=== PATIENT | female | born 1970 | race Caucasian/White ===

== ENCOUNTER → 2016-07-16 | Outpatient (CLI) | payer OTHER ==
[~2016-07-16] MED LIST: FLUO10CA48 PO; IBUP-1050 PO
--- NOTE | 2016-07-16 13:55 | MAMMOGRAPHY REPORT ---
BILATERAL DIGITAL SCREENING MAMMOGRAM TOMOSYNTHESIS WITH CAD: 07/16/2016 CLINICAL HISTORY: Routine screening. Patient has no complaints. TECHNIQUE: Breast tomosynthesis in addition to standard 2D mammography was performed. Current study was also evaluated with a Computer Aided Detection (CAD) system. COMPARISON: Comparison is made to exams dated: 07/15/2015 mammogram, 03/02/2014 mammogram, 07/20/2015 ultrasound biopsy, 07/20/2015 stereotactic biopsy, 07/15/2015 ultrasound, and 10/08/2014 breast MRI - [facility]. BREAST COMPOSITION: The tissue of both breasts is heterogeneously dense, which may obscure small ma sses. FINDINGS: There is a stable ribbon shaped metallic biopsy marker in the upper outer posterior left b reast, and a linear metallic marker in the inferior posterior right breast, only seen on the MLO vie w, from previous benign bilateral biopsies. No new suspicious mass, architectural distortion or clu ster of microcalcifications is seen. IMPRESSION: ACR BI-RADS CATEGORY 1: NEGATIVE There is no mammographic evidence of malignancy. A 1 year screening mammogram is recommended. The p atient will receive written notification of the results. Approximately 10% of breast cancers are not detected with mammography. A negative mammographic repor t should not delay biopsy if a clinically suggestive mass is present. Yesenia Haas M.D. ay/:07/16/2016 13:44:04 [employer] Member: Yadi BECERRA)(Atif), [facility] letter sent: Normal 1/2 BI-RADS Code: ACR BI-RADS Category 1: Negative
== END | disposition home or self-care (01) ==
LOC: C.MAMM 07:40
PROVIDERS: ATTEND Obstetrics & Gynecology
DX: Z12.31 Encounter for screening mammogram for malignant neoplasm of breast (principal)

== ENCOUNTER → 2017-07-17 | Outpatient (CLI) | payer OTHER ==
--- NOTE | 2017-07-17 10:42 | Discharge Instructions ---
Discharge Instructions Procedure Procedure Date: Jul 17, 2017. Reason for visit: Asymptomatic. Discharge Discharge Date: Jul 17, 2017. Discharge Diagnosis: status post breast biopsy Instructions Activity Recommendations: Additional Limitations (see below) Return to School/Work: no limitations Recommended Home Diet: No Limitations Provider Instructions: ACTIVITY RECOMMENDATIONS: * No lifting, pushing, pulling or exercising the affected side for three days. RETURN TO SCHOOL/WORK: * You may return to work/school after the procedure, but do not perform any strenuous activities for 24 to 48 hours. MEDICATIONS: * Tylenol (two 325 mg) every four to six hours if needed for mild pain (if not allergic to Tylenol). DIET: * Resume previous diet. SPECIAL CARE INSTRUCTIONS: * Keep biopsy site dry for 24 hours. May shower after 24 hours, but do not soak (bathe) incision. * May remove Tegaderm (plastic patch) tomorrow AFTER showering. * Leave the steri-strips on for one week. Allow the steri-strips to fall off by themselves. If not off after one week, you may remove them. You may place a Bandaid crosswise over the strips, if desired. * Apply ice 10 minutes on and 10 minutes off as needed. * Wear a bra at bedtime to sleep more comfortably for 2-3 days. * Your referring physician should have the results after approximately 5 to 7 business days. * Call for unusual bleeding, fever, drainage, etc or if you have any questions call during normal business hours or after hours call Dr Pagan, [phone]. FOLLOW UP VISIT: Follow-up with Referring Physician as scheduled. Allergies Coded Allergies: Macrolides (Verified Allergy, Severe, 06/03/09) Penicillins (Verified Allergy, Intermediate, 06/03/09) HIVES Erythromycin (Verified Allergy, Unknown, chest pain, 12/22/12) Sulfa Drugs (Verified Allergy, Unknown, nausea and vomiting, 12/22/12) Cary Marie Recommendations: Call your doctor if: * Temperature above 101 degrees * Pain not relieved by pain medicine ordered * There is increased drainage or redness from any incision * You have any unanswered questions or concerns. Your Doctors Instructions noted above were prepared by provider Britni Pagan. Patient Signature Section: Patient Instructions Signature Page Ana Kessler Patient (or Guardian) Signature/Date: I have read and understand the instructions given to me by my caregivers. Caregiver/RN/Doctor Signature/Date: The above-named patient and/or guardian has received patient instructions on this date. + Original Patient Signature Page (only) stays with chart. Please make copy for patient.
--- NOTE | 2017-07-17 14:12 | MAMMOGRAPHY REPORT ---
ULTRASOUND GUIDED BIOPSY RIGHT BREAST: 07/17/2017 CLINICAL HISTORY: Right 2:00 periareolar breast mass. PATIENT CONSENT: The procedure, risks and benefits were discussed with the patient and informed writt en consent was obtained. A timeout was performed immediately prior to the procedure. PROCEDURE DESCRIPTION: With ultrasound guidance, aseptic technique, and lidocaine as the local anesth etic (1% lidocaine to anesthetize the skin and 1% lidocaine with epinephrine to anesthetize the deepe r tissues), the mass of concern in the right 2:00 periareolar breast was sampled 4 times with a 14-ga uge Achieve biopsy needle. Immediately thereafter, with ultrasound guidance, aseptic technique, and l idocaine as the local anesthetic, a metallic localizer clip was placed at the biopsy site. Direct pr essure was applied to the site immediately post procedure and hemostasis was achieved. Postprocedure unilateral mammograms were performed to confirm placement of the clip in the expected location of th e breast mass; see separate dictation for details. The patient tolerated the procedure without compl ication. She was given wound care instructions. The specimens were sent to pathology for analysis. COMPARISON: Comparison is made to exams dated: 07/17/2017 ultrasound, 07/17/2017 mammogram, 07/16/2016 mammogram, 07/20/2015 mammogram, 07/20/2015 ultrasound biopsy, and 07/20/2015 stereotactic biopsy - [facility]. IMPRESSION: ULTRASOUND GUIDED BIOPSY Ultrasound-guided core needle biopsy of the right 2:00 periareolar breast mass, with clip placement. The patient will receive pathology results from her referring provider. Britni Pagan M.D. ah/:07/17/2017 11:07:09 Conductor Orchestra: Yadi BECERRA)(M), [facility] [address]
--- NOTE | 2017-07-17 14:15 | MAMMOGRAPHY REPORT ---
BILATERAL DIGITAL DIAGNOSTIC MAMMOGRAM TOMOSYNTHESIS WITH CAD AND TARGETED RIGHT ULTRASOUND: 8 CLINICAL HISTORY: Asymptomatic. The patient has no palpable lumps or other complaints. TECHNIQUE: Breast tomosynthesis in addition to standard 2D mammography was performed. Current study was also evaluated with a Computer Aided Detection (CAD) system. Bilateral CC and MLO 2D and tomosyn thesis images were obtained. COMPARISON: Comparison is made to exams dated: 07/16/2016 mammogram, 07/20/2015 mammogram, 07/15/2015 m ammogram, 03/02/2014 mammogram, 02/26/2013 mammogram, and 02/19/2012 mammogram - [facility]. BREAST COMPOSITION: The tissue of both breasts is heterogeneously dense, which may obscure small mas ses. FINDINGS: The patient's screening mammogram shows a small 6 mm nodular asymmetry within the right med ial anterior breast at approximately 2 to 3:00, for which ultrasound is recommended for further evalu ation. Therefore, the exam was converted to a diagnostic mammogram as the diagnostic workup was perf ormed on the same day. The remainder of both breasts are stable compared to prior exams, without judah picious masses, calcifications, or areas of architectural distortion noted. Biopsy marker clips are again noted within the left upper outer quadrant and right lower inner quadrant from prior benign bio psies. Targeted ultrasound was performed of the right 2 to 3:00 periareolar breast in the region of the mamm ographic asymmetry. In the right 2:00 periareolar breast, there is an oval hypoechoic solid-appearin g 4 x 6 x 3 mm. The margins are not completely circumscribed. This corresponds with the mammographi c asymmetry and is indeterminant. Recommend ultrasound-guided core needle biopsy for further evaluat ion. Postprocedural right cc and ML 2D and tomosynthesis images were obtained after the biopsy, which show a new ribbon-shaped biopsy marker clip at the site of the biopsied mass in the right 2:00 periareola r breast. No significant postbiopsy hematoma is seen. IMPRESSION: ACR BI-RADS CATEGORY 4: SUSPICIOUS, TARGETED ULTRASOUND ACR BI-RADS CATEGORY 4: SUSPICIO US 1. Hypoechoic 6 mm mass in the right 2:00 periareolar breast on ultrasound, which corresponds with a mammographic focal asymmetry. The mass is indeterminate and ultrasound-guided core needle biopsy is recommended for further evaluation. The biopsy was performed the same day; see separate dictation fo r details. 2. Postprocedural mammograms show a new biopsy marker clip at the site of the biopsied asymmetry in the right 2:00 periareolar breast. The results were reviewed with the patient. Approximately 10% of breast cancers are not detected with mammography. A negative mammographic report should not delay biopsy if a clinically suggestive mass is present. Britni Pagan M.D. ah/:07/17/2017 11:00:26 Disability Benefits Specialist: Yadi CASTILLO(Bruno)(M), [facility] BI-RADS Code: ACR BI-RADS Category 4: Suspicious Ultrasound BI-RADS: ACR BI-RADS Category 4: Suspici ous
== END | disposition home or self-care (01) ==
LOC: C.MAMM 07:26
PROVIDERS: ATTEND Obstetrics & Gynecology
DX: D24.1 Benign neoplasm of right breast (principal)

== ENCOUNTER → 2017-11-13 | Outpatient (CLI) | payer OTHER ==
[2017-11-13 09:37] LABS: BASO % 0.6 %; BASO ABS # 0.05 K/uL (0-0.2); EOS ABS # 0.08 K/uL (0-0.5); HEMATOCRIT 43.1 % (37-47); HEMOGLOBIN 14.4 g/dL (12.0-16.0); IG# 0.02 K/uL (0.00-0.02); LYMPH % 26.6 %; LYMPH ABS # 2.06 K/uL (1.2-3.4); MEAN CELL VOLUME 95.6 fL (80-100); MEAN CORPUSCULAR HEMOGLOBIN 31.9 pg (25-34); MEAN CORPUSCULAR HGB CONC 33.4 g/dl (32-36); MEAN PLATELET VOLUME 10.7 fL (7.4-10.4); MONO % 10.3 %; NEUT % 61.2 %; NEUT ABS # 4.73 K/uL (1.4-6.5); PLATELET COUNT 319 K/uL (130-400); RED CELL DISTRIBUTION WIDTH CV 12.5 % (11.5-14.5); RED CELL DISTRIBUTION WIDTH SD 43.4 fL (36.4-46.3); WHITE BLOOD COUNT 7.74 K/uL (4.8-10.8)
[2017-11-13 10:08] LABS: ALBUMIN 3.6 gm/dl (3.4-5.0); ALKALINE PHOSPHATASE 80 U/L (45-117); ALT/SGPT 23 U/L (12-78); AST/SGOT 17 U/L (15-37); BLOOD UREA NITROGEN 17 mg/dl (7-18); CALCIUM 8.5 mg/dl (8.5-10.1); CARBON DIOXIDE 27 mmol/L (21-32); CHOLESTEROL 185 mg/dl (0-200); CREATININE 0.94 mg/dl (0.60-1.20); GLUCOSE 95 mg/dl (70-99); LDL CHOLESTEROL CALCULATED 120 mg/dl; POTASSIUM 4.7 mmol/L (3.5-5.1); SODIUM 139 mmol/L (136-145); TOTAL PROTEIN 7.3 gm/dl (6.4-8.2)
== END | disposition home or self-care (01) ==
LOC: C.LAB1850 07:08
PROVIDERS: ATTEND Family Medicine
DX: Z13.220 Encounter for screening for lipoid disorders (principal); R53.81 Other malaise; R53.83 Other fatigue

== ENCOUNTER 2024-10-17 02:44 | Inpatient (IN) ==
[2024-10-17 03:36] LABS: Basophils # (auto) 0.07 K/uL (0.00-0.20); Basophils % (auto) 0.4 %; Eosinophils # (auto) 0.02 K/uL (0.00-0.50); Eosinophils % (auto) 0.1 %; Hematocrit (blood only) 47.4 % (37.0-47.0); Hemoglobin 16.1 g/dl (12.0-16.0); Immature Granulocytes # (auto) 0.07 K/uL (0.01-0.20); Immature Granulocytes % (auto) 0.4 %; Lymphocytes # (auto) 1.57 K/uL (1.20-3.40); Lymphocytes % (auto) 9.6 %; Mean Corpuscular Hemoglobin 31.8 pg (25.0-34.0); Mean Corpuscular Volume 93.7 fL (80.0-100.0); Mean Platelet Volume 10.1 fL (9.4-12.4); Monocytes # (auto) 0.67 K/uL (0.11-0.59); Monocytes % (auto) 4.1 %; Neutrophils # (auto) 14.03 K/uL (1.40-6.50); Neutrophils % (auto) 85.4 %; Platelet Count 350 K/uL (130-400); RDW Coefficient of Variation 12.3 % (11.5-14.5); RDW Standard Deviation 42.5 fL (36.4-46.3); Red Blood Count 5.06 M/uL (4.20-5.40); White Blood Count 16.43 K/ul (4.8-10.8)
[2024-10-17] MEDS: ONDANSETRON INJ 2 MG/ML 2 ML VIAL IV STA (03:36)
[2024-10-17] MEDS: HYDROmorphone INJ 0.5 MG/0.5 ML SYR IV STA (03:36)
[2024-10-17] MEDS: PANTOprazole 40 MG/10 ML SYR IV ONE (03:36)
[2024-10-17 03:45] LABS: Albumin Level 4.2 gm/dl (3.4-5.0); Bilirubin,Total 0.7 mg/dl (0.2-1.0); Calcium 9.9 mg/dl (8.6-10.3); Potassium 3.8 mmol/L (3.5-5.1)
[2024-10-17 03:51] LABS: Albumin Globulin Ratio 1.1 (0.9-2); BUN Creatinine Ratio 15.6 (10-20); Globulin 3.7 gm/dl (2.5-4.0); Total Protein 7.9 gm/dl (6.0-8.3)
[2024-10-17 03:54] LABS: Troponin I High Sensitivity 3.4 pg/ml (0-14)
[2024-10-17] MEDS: OPTIRAY 320 100ml IV ONE (04:53)
[2024-10-17] MEDS: SODIUM CHLORIDE 0.9% 1,000 ML IV ONE (05:31)
--- NOTE | 2024-10-17 06:40 | CT Scan Report ---
EXAM: CT abd pelvis IV con only CLINICAL HISTORY: Eval epigastric pain. TECHNIQUE: CT of the abdomen and pelvis was performed with contrast 93 ml opti 320 mg/ml was administrated, with the following protocol: axial images with, and reconstructed coronal and sagittal images. One of the following dose reduction techniques was utilized for this exam: Automated exposure control, adjustment of the mA and/or kV according to patient size, and use of iterative reconstruction. COMPARISON: None. FINDINGS: Abdomen: Dilated long segment of small bowel at distal jejunum/jejunoileal junction, measuring 3.2 cm transition zone noted at proximal ileum, distal to it collapsed ileum and large bowel noted, the ileum segment just distal to transition show mildly thickened enhanced wall with engorged supplying vessels(vasa recta), suggesting possible inflammatory cause of obstruction. Mild free fluid in the pelvis. Liver: Multiple small variable liver cysts, the largest one is 1.3cm, at segment VIII. Otherwise, Normal in size, shape, and density. No masses were identified. Hepatic vasculature and biliary ducts are unremarkable. Gallbladder and Biliary System: GB is surgically absent Dilated CBD reaching 1 cm, CHD and right and left main hepatic ducts, probably due to post-cholecystectomy state, clinical correlation is advised. Pancreas: The pancreatic head, body, and tail are visualized and appear normal in size and density. No pancreatic masses or calcifications were noted. The pancreatic duct is not dilated. Spleen: Normal in size, shape, and density. No splenic lesions or masses were identified. Appendix: Not seen in isolation, but no gross pathology. Kidneys and Adrenal Glands: Both kidneys are normal in size, shape, and position. Cortical thickness is within normal limits. No renal calculi or hydronephrosis. Adrenal glands are unremarkable with no evidence of masses or hyperplasia. Pelvis: Urinary Bladder: Normal in contour and wall thickness. No intraluminal lesions identified. Uterus: Not seen, likely removed surgically. Ovaries: Not well visualized but no gross abnormalities noted. Peritoneal and Retroperitoneal Structures: No lymphadenopathy was noted. Bones and Soft Tissues: Pelvic bones and soft tissues are unremarkable. No fractures or abnormal masses were identified. Tiny fat-containing umbilical hernia. IMPRESSION: 1. Small bowel obstruction, involving the distal jejunum/jejnoileal region, transition zone noted at proximal ileum, the ileum segment just distal to transition show mildly thickened enhanced wall with engorged supplying vessels (vasa recta), suggesting a possible inflammatory cause of obstruction, advise clinical correlation. 2. Mild free fluid in the pelvis. 3. Multiple small variable-sized hepatic cysts. 4. Dilated CBD reaching 1 cm, CHD, and right and left main hepatic ducts, probably due to post-cholecystectomy state, clinical correlation is advised. Electronically signed by Ruddy Castellano 10-17-2024 06:40 AM
--- NOTE | 2024-10-17 07:12 | XRay Report ---
EXAM: XR chest 1V portable CLINICAL HISTORY: Chest pain, nonspecific TECHNIQUE: Radiograph of chest was acquired. COMPARISON: 08/27/2023 07:58:08 [employer] FINDINGS: The lungs are clear and well-expanded with no pulmonary infiltrate or pleural effusion. The cardiomediastinal silhouette is within normal limits. No acute osseous abnormality. IMPRESSION: 1. No acute cardiopulmonary disease. No new finding. Electronically signed by Alberto Acosta 10-17-2024 07:11 AM
[2024-10-17] MEDS: SODIUM CHLORIDE 0.9% 500 ML IV SCH (07:21)
--- NOTE | 2024-10-17 07:32 | Emergency Department Note ---
Impression & Plan Small bowel obstruction admit to the [facility] ED Provider Note NAME: ABNER COOK AGE: 54 SEX: Female INFORMANT: Patient ED PROVIDER(S): Janeth Mcdaniel DO CHIEF COMPLAINT: epigastric pain/chest pain PLAN: Disposition: admit to the [facility] MEDICAL DECISION MAKING: This is a 54-year-old female patient presents to the emergency department with moderate to severe epigastric pain/chest pain that started around 1:00 yesterday afternoon. The pain was associated with some nausea throughout the day. The patient tried to eat dinner ( hotdogs, cucumbers, and baked beans) but the pain drastically worsened. The patient had an endoscopy performed 3 days ago which she describes as mostly normal. This was ordered because the patient had been having intermittent episodes of epigastric abdominal pain. Patient's sister explains that the patient has been under significant increased stress over the past couple of days. She does have a history of using alcohol since her of pancreatic cancer 3 years ago. Patient did have 1 alcoholic beverage last night. Patient does have a history of multiple abdominal surgeries but no previous bowel obstructions. Laboratory studies reveal white blood cell count of 16.4. H&H were stable. Troponin was negative. EKG was normal. Glucose was 166. LFTs were negative. Lipase was normal. CT scan did show evidence of a small bowel obstruction at the ileal jejunal junction. I discussed the case with the [facility] and they will evaluate for further inpatient care. Care/management discussed with: practice manager and [facility] Triage Nursing notes: reviewed and agree with them. Vital Signs: reviewed and remarkable for no significant abnormalities Additional History obtained from: Patient's sister who is at the bedside Differential Diagnosis: Perforated viscus, pancreatitis, colitis, small bowel obstruction Diagnostics, independently interpreted by me: ECG: normal sinus rhythm at a rate of [address] segment elevation or signs of ischemia. There is no ectopy. Cardiac Monitoring: Normal sinus rhythm at 78 Imaging studies: CT scan of the abdomen/pelvis: As per [facility] Portable chest x-ray: No acute pulmonary infiltrates or consolidation as per my independent interpretation HPI: 54 year old Female arrives for evaluation of Chest pain/epigastric pain. she describes moderate to severe epigastric pain/chest pain that started Around 1:00 yesterday afternoon. The pain was associated with some nausea throughout the day. The patient tried to eat dinner ( hotdogs, cucumbers, and baked beans) but the pain drastically worsened. The patient had an endoscopy performed 3 days ago which she describes as mostly normal. This was ordered because the patient had been having intermittent episodes of epigastric abdominal pain.. PAST MEDICAL HISTORY: See Below, PAST SURGICAL HISTORY: Appendectomy, cholecystectomy, hysterectomy SOCIAL HISTORY: , moderate alcohol use, lives with her children HOME MEDICATIONS: See list ALLERGIES: See list VITALS: See Below PHYSICAL EXAMINATION: HEENT: Head - normocephalic and atraumatic. Pupils are equal, round, and reactive to light. Extraocular eye muscles are intact, and sclera are anicteric. Nose - moist nasal mucosa without discharge. Mouth - moist buccal mucosa. Oropharynx is nonerythematous and there is no tonsillar exudate or edema noted. Neck: Supple; no JVD, nuchal rigidity, cervical lymphadenopathy Heart: Regular rate and rhythm. There is a normal S1 and S2 with no murmurs, clicks, or gallops appreciated. Lungs: Clear to auscultation bilaterally with no wheezes, rales, or rhonchi. Abdomen: Soft, moderate tenderness to palpation in the epigastrium, nondistended, with good bowel sounds. There are no palpable pulsatile masses or hepatosplenomegaly. There is no guarding, rigidity, or rebound noted. Extremities: No evidence of cyanosis, clubbing, or edema. There are easily palpable peripheral pulses. Skin: warm and dry with good turgor and no rashes. Emergency Department treatment: site monitor, IV Protonix, IV Zofran, IV Dilaudid, IV normal saline Emergency Department course: The patient was evaluated in room B-9. A complete history and physical was performed. An order was placed for continuous cardiac monitoring. The patient was in a normal sinus rhythm at a rate of 78. A twelve-lead EKG was obtained as described above. IV lock was initiated and labs were drawn as above. Patient went for CT scan of the abdomen/pelvis. Upon repeat assessment after radiology, the patient was feeling much better. I reviewed the results of the labs with her. I reviewed the results of the CT scan with her. She had no further nausea/vomiting or any abdominal pain at this point. I discussed the case with the [facility] and they will evaluate for further inpatient care and consult surgery. Past Med/Surg History Problem List (Updated 10/17/24 @ 11:29 by Madeleine Panda PA-C) Anxiety Leukocytosis Small bowel obstruction (Acute) Mass of finger of left hand Heterogeneously dense tissue of both breasts on mammography Family history of malignant neoplasm of breast Colon cancer screening Encounter for assessment of STD exposure Encounter for pre-operative examination Menorrhagia Encounter for routine gynecological examination Medical History History of menorrhagia had hysterectomy--no further issues History of COVID-19 03/2021--mild symptoms, no symptoms now History of basal cell cancer on nose and back Osteoarthritis Uterine fibroid 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 TMJ locking hx TMJ click Surgical History History of colonoscopy History of basal cell carcinoma (BCC) excision on nose and back History of hysterectomy with unilateral oophorectomy 08/2022 History of surgery left index finger History of right oophorectomy History of gynecologic surgery Cervical conization loop electrode excision History of appendectomy History of oral surgery soft palate excision of malignant tumor History of laparoscopic cholecystectomy Family History Mother Breast cancer, Onset Age: 51 Sister Breast cancer, Onset Age: 40 Early 40s Family/Other Endometrial cancer, Onset Age: 40 Family/Other Ovarian cancer Other No family history of adverse response to anesthesia Denies family history of Colorectal cancer Social History Smoking Status: Former smoker Tobacco Type: Cigarettes Second Hand Exposure: No; Do You Dip or Chew Tobacco: No; Hx Alcohol Use: Yes Alcohol type: wine Hx Substance Use: No Preferred Language: [place] Communication Ability: Effective Back Digger Operator Required: Yes Beliefs That Will Affect Care: None Current Living Situation: Alone Current Living Situation Comment: Feels Safe at Home: Yes Assistive Devices: None Allergies Allergies Allergy/AdvReac Type Severity Reaction Status Date / Time citalopram Allergy Intermediate hives ? Verified 09/10/24 16:13 erythromycin base Allergy Intermediate chest pain Verified 10/17/24 09:02 Macrolide Antibiotics Allergy Intermediate Hives Verified 10/17/24 09:02 Penicillins Allergy Intermediate Hives Verified 10/17/24 09:02 walnut Allergy Intermediate Hives Verified 10/17/24 09:02 Sulfa (Sulfonamide Allergy Mild nausea and Verified 10/17/24 09:02 Antibiotics) vomiting, hives Home Meds Home Medications Medication Instructions Recorded Confirmed fluoxetine 10 mg tablet 10 mg PO QAM 08/01/22 10/17/24 ascorbate calcium (vitamin C) 1 tab PO DAILY 10/17/24 10/17/24 Results & Data (ED) Vital Signs Vital Signs - 24 hr 10/17/24 02:52 10/17/24 03:01 10/17/24 03:24 Temperature 36.6 C Temperature Source Temporal Artery Scan Pulse Rate 67 70 58 L Pulse Rate from SpO2 Sensor Respiratory Rate 16 18 Respiratory Depth Normal Blood Pressure 161/88 H 141/89 H Blood Pressure Mean 112 106 Pulse Oximetry 100 98 Oxygen Delivery Method Room Air Sepsis Recent Fever Within 48 Hours No Sepsis New/Unexplained Change in Mental Status No Sepsis Action Taken by Nursing No Action Required 10/17/24 04:45 10/17/24 04:59 10/17/24 04:59 Temperature Temperature Source Pulse Rate 65 Pulse Rate from SpO2 Sensor Respiratory Rate 18 Respiratory Depth Blood Pressure 136/91 136/91 136/91 Blood Pressure Mean 106 108 108 Pulse Oximetry 97 Oxygen Delivery Method Sepsis Recent Fever Within 48 Hours Sepsis New/Unexplained Change in Mental Status Sepsis Action Taken by Nursing 10/17/24 04:59 10/17/24 05:03 10/17/24 05:12 Temperature Temperature Source Pulse Rate 69 63 Pulse Rate from SpO2 Sensor 68 64 Respiratory Rate 15 16 Respiratory Depth Blood Pressure 136/91 Blood Pressure Mean 108 Pulse Oximetry 100 97 Oxygen Delivery Method Sepsis Recent Fever Within 48 Hours Sepsis New/Unexplained Change in Mental Status Sepsis Action Taken by Nursing 10/17/24 05:21 10/17/24 05:33 10/17/24 05:46 Temperature Temperature Source Pulse Rate 78 69 68 Pulse Rate from SpO2 Sensor 75 71 Respiratory Rate 21 13 16 Respiratory Depth Blood Pressure 119/72 Blood Pressure Mean 87 Pulse Oximetry 100 99 98 Oxygen Delivery Method Sepsis Recent Fever Within 48 Hours Sepsis New/Unexplained Change in Mental Status Sepsis Action Taken by Nursing 10/17/24 06:20 10/17/24 06:48 10/17/24 07:06 Temperature Temperature Source Pulse Rate 74 66 87 Pulse Rate from SpO2 Sensor 86 Respiratory Rate 18 16 Respiratory Depth Blood Pressure 117/84 138/85 Blood Pressure Mean 95 102 Pulse Oximetry 99 100 Oxygen Delivery Method Room Air Sepsis Recent Fever Within 48 Hours Sepsis New/Unexplained Change in Mental Status Sepsis Action Taken by Nursing Laboratory Data 10/17/24 03:01 10/17/24 03:01 Lab Results 10/17/24 10/17/24 Range/Units 03:01 07:35 WBC 16.43 H (4.8-10.8) K/ul RBC 5.06 (4.20-5.40) M/uL Hgb 16.1 H (12.0-16.0) g/dl Hct 47.4 H (37.0-47.0) % MCV 93.7 (80.0-100.0) fL MCH 31.8 (25.0-34.0) pg MCHC 34.0 (32.0-36.0) g/dL RDW Std Deviation 42.5 (36.4-46.3) fL RDW Coeff of Ricardo 12.3 (11.5-14.5) % Plt Count 350 (130-400) K/uL MPV 10.1 (9.4-12.4) fL Immature Gran % (Auto) 0.4 % Neut % (Auto) 85.4 % Lymph % (Auto) 9.6 % Rush % (Auto) 4.1 % Eos % (Auto) 0.1 % Baso % (Auto) 0.4 % Neut # (Auto) 14.03 H (1.40-6.50) K/uL Lymph # (Auto) 1.57 (1.20-3.40) K/uL Rush # (Auto) 0.67 H (0.11-0.59) K/uL Eos # (Auto) 0.02 (0.00-0.50) K/uL Baso # (Auto) 0.07 (0.00-0.20) K/uL Immature Gran # (Auto) 0.07 (0.01-0.20) K/uL Sodium 139 (136-145) mmol/L Potassium 3.8 (3.5-5.1) mmol/L Chloride 100 (98-107) mmol/L Carbon Dioxide 29 (21-32) mmol/L Anion Gap 10 (3-11) BUN 15 (6-23) mg/dl Creatinine 0.96 (0.6-1.2) mg/dl Est Cr Clr Drug Dosing 68.0 ml/min eGFR 71.19 BUN/Creatinine Ratio 15.6 (10-20) Glucose 166 H (70-99(Fasting)) mg/dl Calcium 9.9 (8.6-10.3) mg/dl Total Bilirubin 0.7 (0.2-1.0) mg/dl AST 21 (13-39) U/L ALT 14 (7-52) U/L Alkaline Phosphatase 118 H (34-104) U/L Troponin I High Sens 3.4 (0-14) pg/ml Total Protein 7.9 (6.0-8.3) gm/dl Albumin 4.2 (3.4-5.0) gm/dl Globulin 3.7 (2.5-4.0) gm/dl Albumin/Globulin Ratio 1.1 (0.9-2) Lipase 16 (11-82) U/L Procalcitonin Cancelled Ethyl Alcohol mg/dL < 10.0 (<10.0) mg/dl Administered Medications Sodium Chloride (Nss) 1,000 mls @ 125 mls/hr IV .Q8H OLEGARIO Stop: 10/20/24 07:59 Last Infusion: 10/17/24 14:39 Dose: 125 mls/hr Documented By: Admin: 10/17/24 08:11 Dose: 100 mls/hr Documented By: PARTHAV Discontinued Medications Hydromorphone HCl (Hydromorphone Inj 0.5 Mg/0.5 Ml Syr) 0.5 mg IV NOW STA Stop: 10/17/24 03:17 Last Admin: 10/17/24 03:36 Dose: 0.5 mg Documented By: JOSEPHINE Pantoprazole Sodium (Protonix) 40 mg in 10 mls @ 5 mls/min IV NOW ONE Stop: 10/17/24 03:17 Last Admin: 10/17/24 03:36 Dose: 5 mls/min Documented By: JOSEPHINE Sodium Chloride (Nss) 1,000 mls @ 999 mls/hr IV .Q1H1M ONE Stop: 10/17/24 05:47 Last Infusion: 10/17/24 06:47 Dose: Infused Documented By: Admin: 10/17/24 05:31 Dose: 999 mls/hr Documented By: JOSEPHINE Sodium Chloride (Nss) 500 mls @ 125 mls/hr IV .Q4H OLEGARIO Stop: 10/17/24 11:14 Last Infusion: 10/17/24 08:12 Dose: Infused Documented By: Infusion: 10/17/24 08:03 Dose: 100 mls/hr Documented By: Infusion: 10/17/24 08:02 Dose: 0 mls/hr Documented By: Admin: 10/17/24 07:21 Dose: 125 mls/hr Documented By: SAMARIA Ioversol (Optiray 320 100ml) 93 ml IV ONCE ONE Stop: 10/17/24 04:54 Last Admin: 10/17/24 04:53 Dose: 93 ml Documented By: DENILSON Ondansetron HCl (Ondansetron Inj 2 Mg/Ml 2 Ml Vial) 4 mg IV NOW STA Stop: 10/17/24 03:17 Last Admin: 10/17/24 03:36 Dose: 4 mg Documented By: JOSEPHINE Imaging Data Radiologist's Impression: Abdomen/Pelvis CT 10/17/24 03:16 EXAM: CT abd pelvis IV con only CLINICAL HISTORY: Eval epigastric pain. TECHNIQUE: CT of the abdomen and pelvis was performed with contrast 93 ml opti 320 mg/ml was administrated, with the following protocol: axial images with, and reconstructed coronal and sagittal images. One of the following dose reduction techniques was utilized for this exam: Automated exposure control, adjustment of the mA and/or kV according to patient size, and use of iterative reconstruction. COMPARISON: None. FINDINGS: Abdomen: Dilated long segment of small bowel at distal jejunum/jejunoileal junction, measuring 3.2 cm transition zone noted at proximal ileum, distal to it collapsed ileum and large bowel noted, the ileum segment just distal to transition show mildly thickened enhanced wall with engorged supplying vessels(vasa recta), suggesting possible inflammatory cause of obstruction. Mild free fluid in the pelvis. Liver: Multiple small variable liver cysts, the largest one is 1.3cm, at segment VIII. Otherwise, Normal in size, shape, and density. No masses were identified. Hepatic vasculature and biliary ducts are unremarkable. Gallbladder and Biliary System: GB is surgically absent Dilated CBD reaching 1 cm, CHD and right and left main hepatic ducts, probably due to post-cholecystectomy state, clinical correlation is advised. Pancreas: The pancreatic head, body, and tail are visualized and appear normal in size and density. No pancreatic masses or calcifications were noted. The pancreatic duct is not dilated. Spleen: Normal in size, shape, and density. No splenic lesions or masses were identified. Appendix: Not seen in isolation, but no gross pathology. Kidneys and Adrenal Glands: Both kidneys are normal in size, shape, and position. Cortical thickness is within normal limits. No renal calculi or hydronephrosis. Adrenal glands are unremarkable with no evidence of masses or hyperplasia. Pelvis: Urinary Bladder: Normal in contour and wall thickness. No intraluminal lesions identified. Uterus: Not seen, likely removed surgically. Ovaries: Not well visualized but no gross abnormalities noted. Peritoneal and Retroperitoneal Structures: No lymphadenopathy was noted. Bones and Soft Tissues: Pelvic bones and soft tissues are unremarkable. No fractures or abnormal masses were identified. Tiny fat-containing umbilical hernia. IMPRESSION: 1. Small bowel obstruction, involving the distal jejunum/jejnoileal region, transition zone noted at proximal ileum, the ileum segment just distal to transition show mildly thickened enhanced wall with engorged supplying vessels (vasa recta), suggesting a possible inflammatory cause of obstruction, advise clinical correlation. 2. Mild free fluid in the pelvis. 3. Multiple small variable-sized hepatic cysts. 4. Dilated CBD reaching 1 cm, CHD, and right and left main hepatic ducts, probably due to post-cholecystectomy state, clinical correlation is advised. Electronically signed by Ruddy Castellano 10-17-2024 06:40 AM Chest X-Ray 10/17/24 03:16 EXAM: XR chest 1V portable CLINICAL HISTORY: Chest pain, nonspecific TECHNIQUE: Radiograph of chest was acquired. COMPARISON: 08/27/2023 07:58:08 ARCHITECTURAL MANAGER FINDINGS: The lungs are clear and well-expanded with no pulmonary infiltrate or pleural effusion. The cardiomediastinal silhouette is within normal limits. No acute osseous abnormality. IMPRESSION: 1. No acute cardiopulmonary disease. No new finding. Electronically signed by Alberto Acosta 10-17-2024 07:11 AM Discharge Plan Visit Data Chief Complaint: Chest Pain Stated Complaint: CHEST PAIN,VOMITING,CLAMMY ED Provider: Janeth Mcdaniel Discharge Problem: Small bowel obstruction Patient Disposition: Admitted As Inpatient Condition: Fair Discharge Instructions Interventions: ED Discharge Assessment Last Done: 10/17/24 10:26
--- NOTE | 2024-10-17 07:39 | History & Physical Report ---
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 #SBO CTAP:Small bowel obstruction, involving the distal jejunum/jejnoileal region, transition zone noted at proximal ileum, the ileum segment just distal to transition show mildly thickened enhanced wall with engorged supplying vessels (vasa recta), suggesting a possible inflammatory cause of obstruction. Lipase negative Lactate negative Gen surg consulted, recommending: -No indication for surgery, pt feeling improved -Conservative management w/ NPO, IVF, PRN antiemetics -No need for NG tube at this time PRN IV Tylenol for pain #Leukocytosis Check UA Procal negative CXR unremarkable ? reactive 2/2 pain Follow WBC trend Will hold off on ABX for now given no clear infectious source #Anxiety Continue Prozac #Incidental CTAP finding --> multiple small variable-sized hepatic cysts Pt made aware Alk phos slightly bumped at 118 but otherwise additional LFTs remain WNL Outpt f/u advised DVT Prophylaxis: SCDs/TEDs Disposition: Admit to med/surg; can d/c quality assurance monitor given absence of chest pain after further eval, trop x2 neg and EKG benign Patient seen in collaboration with Dr. Wells. Please see addendum. I spent a total of 48 minutes coordinating, documenting, and providing care for this patient excluding time spent in the performance of separately billed services or time spent by another provider/QHP. This included personally reviewing all current laboratories and imaging studies, medical reconciliation, outpatient chart review and discussion with specialists. This chart was completed in part utilizing Speech Voice Recognition Software. Grammatical errors, random word insertions, pronoun errors, and incomplete sentences are an occasional consequence of this system due to software limita tions, ambient noise, and hardware issues. Any formal questions or concerns about the content, text, or information contained within the body of this dictation should be directly addressed to the provider for clarification. 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 History obtained from the patient, discussion with ED provider and associated chart review. Endorses intermittent bouts of epigastric discomfort and pain which have been ongoing since last year. Had been on trial of oral omeprazole as directed by her PCP which did initially seem to help up until the past few months when these episodes started happening again. She was subsequently referred by her PCP for outpatient EGD which was recently completed this past Saturday and it came back "completely normal" per the patient. Last evening she started to have intense epigastric pain after eating dinner and then developed incessant N/V which prompted her to come to the ED. No reported fevers. No history of inflammatory bowel disease. History of hysterectomy, right salpingo-oophorectomy, cholecystectomy and appendectomy. Prior colonscopy in February 2023: 4mm sessile polyp in the sigmoid colon (removed via cold snare), small non-bleeding internal hemorrhoids. Former smoker, quit >20 years ago. Occasional alcohol use. No recreational drug use. Allergies Allergy/AdvReac Type Severity Reaction Status Date / Time citalopram Allergy Intermediate hives ? Verified 09/10/24 16:13 erythromycin base Allergy Intermediate chest pain Verified 10/17/24 09:02 Macrolide Antibiotics Allergy Intermediate Hives Verified 10/17/24 09:02 Penicillins Allergy Intermediate Hives Verified 10/17/24 09:02 walnut Allergy Intermediate Hives Verified 10/17/24 09:02 Sulfa (Sulfonamide Allergy Mild nausea and Verified 10/17/24 09:02 Antibiotics) vomiting, hives Home Medications Medication Instructions Recorded Confirmed Type fluoxetine 10 mg tablet 10 mg PO QAM 08/01/22 10/17/24 History ascorbate calcium (vitamin C) 1 tab PO DAILY 10/17/24 10/17/24 History Past Med/Surg History Problem List (Updated 10/17/24 @ 11:29 by Madeleine Panda PA-C) Anxiety Leukocytosis Small bowel obstruction (Acute) Mass of finger of left hand Heterogeneously dense tissue of both breasts on mammography Family history of malignant neoplasm of breast Colon cancer screening Encounter for assessment of STD exposure Encounter for pre-operative examination Menorrhagia Encounter for routine gynecological examination Medical History History of menorrhagia had hysterectomy--no further issues History of COVID-19 03/2021--mild symptoms, no symptoms now History of basal cell cancer on nose and back Osteoarthritis Uterine fibroid 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 TMJ locking hx TMJ click Surgical History History of colonoscopy History of basal cell carcinoma (BCC) excision on nose and back History of hysterectomy with unilateral oophorectomy 08/2022 History of surgery left index finger History of right oophorectomy History of gynecologic surgery Cervical conization loop electrode excision History of appendectomy History of oral surgery soft palate excision of malignant tumor History of laparoscopic cholecystectomy Family History Mother Breast cancer, Onset Age: 51 Sister Breast cancer, Onset Age: 40 Early 40s Family/Other Endometrial cancer, Onset Age: 40 Family/Other Ovarian cancer Other No family history of adverse response to anesthesia Denies family history of Colorectal cancer Social History Smoking Status: Former smoker Tobacco Type: Cigarettes Second Hand Exposure: No; Do You Dip or Chew Tobacco: No; Hx Alcohol Use: Yes Alcohol type: wine Hx Substance Use: No Preferred Language: Filipino Communication Ability: Effective Sprinkler Installer Required: Yes Beliefs That Will Affect Care: None Current Living Situation: Alone Current Living Situation Comment: Feels Safe at Home: Yes Assistive Devices: None Review of Systems Review of Systems: At least ten systems reviewed and negative, except as noted in the HPI. Physical Exam Physical Exam: General: WD/WN, NAD. A&Ox4, conversing appropriately. Pleasant. HEENT: Normocephalic, atraumatic. External ear and nose normal, oropharynx slightly dry. Respiratory: Normal respiratory effort, lungs clear to auscultation bilaterally. Cardiovascular: Regular rate, rhythm, normal peripheral pulses, no BLE edema. Abdomen/GI: Active bowel sounds, soft, mild discomfort w/ palpation of epigastrium but otherwise benign. Nondistended. Extremities/MSK: No cyanosis or clubbing, extremities motor strength intact, moves all extremities. Neurologic: No overt focal deficits, CN's II-XI not formally tested but appear grossly intact bilaterally. Skin: No rashes, normal color. Healed laparoscopic incisions on abd wall from prior surgeries. Results & Data Results & Data Vital Signs (Past 12 Hours) Vital Signs Temp Pulse Resp BP Pulse Ox O2 Del Method 10/17/24 07:06 87 16 138/85 100 Room Air 10/17/24 06:48 66 18 117/84 99 10/17/24 06:20 74 10/17/24 05:46 68 16 119/72 98 10/17/24 05:33 69 13 99 10/17/24 05:21 78 21 100 10/17/24 05:12 63 16 97 10/17/24 05:03 69 15 100 10/17/24 04:59 136/91 10/17/24 04:59 136/91 10/17/24 04:59 136/91 10/17/24 04:45 65 18 136/91 97 10/17/24 03:24 58 L 18 141/89 H 98 10/17/24 03:01 70 10/17/24 02:52 36.6 C 67 16 161/88 H 100 Room Air Laboratory Results Short CBC 10/17/24 Range/Units 03:01 WBC 16.43 H (4.8-10.8) K/ul Hgb 16.1 H (12.0-16.0) g/dl Hct 47.4 H (37.0-47.0) % Plt Count 350 (130-400) K/uL BMP 10/17/24 03:01 Sodium 139 Potassium 3.8 Chloride 100 Carbon Dioxide 29 BUN 15 Creatinine 0.96 Glucose 166 H Calcium 9.9 Liver Function 10/17/24 Range/Units 03:01 Total Bilirubin 0.7 (0.2-1.0) mg/dl AST 21 (13-39) U/L ALT 14 (7-52) U/L Alkaline Phosphatase 118 H (34-104) U/L Albumin 4.2 (3.4-5.0) gm/dl Diagnostic Findings Abdomen/Pelvis CT 10/17/24 03:16 EXAM: CT abd pelvis IV con only CLINICAL HISTORY: Eval epigastric pain. TECHNIQUE: CT of the abdomen and pelvis was performed with contrast 93 ml opti 320 mg/ml was administrated, with the following protocol: axial images with, and reconstructed coronal and sagittal images. One of the following dose reduction techniques was utilized for this exam: Automated exposure control, adjustment of the mA and/or kV according to patient size, and use of iterative reconstruction. COMPARISON: None. FINDINGS: Abdomen: Dilated long segment of small bowel at distal jejunum/jejunoileal junction, measuring 3.2 cm transition zone noted at proximal ileum, distal to it collapsed ileum and large bowel noted, the ileum segment just distal to transition show mildly thickened enhanced wall with engorged supplying vessels(vasa recta), suggesting possible inflammatory cause of obstruction. Mild free fluid in the pelvis. Liver: Multiple small variable liver cysts, the largest one is 1.3cm, at segment VIII. Otherwise, Normal in size, shape, and density. No masses were identified. Hepatic vasculature and biliary ducts are unremarkable. Gallbladder and Biliary System: GB is surgically absent Dilated CBD reaching 1 cm, CHD and right and left main hepatic ducts, probably due to post-cholecystectomy state, clinical correlation is advised. Pancreas: The pancreatic head, body, and tail are visualized and appear normal in size and density. No pancreatic masses or calcifications were noted. The pancreatic duct is not dilated. Spleen: Normal in size, shape, and density. No splenic lesions or masses were identified. Appendix: Not seen in isolation, but no gross pathology. Kidneys and Adrenal Glands: Both kidneys are normal in size, shape, and position. Cortical thickness is within normal limits. No renal calculi or hydronephrosis. Adrenal glands are unremarkable with no evidence of masses or hyperplasia. Pelvis: Urinary Bladder: Normal in contour and wall thickness. No intraluminal lesions identified. Uterus: Not seen, likely removed surgically. Ovaries: Not well visualized but no gross abnormalities noted. Peritoneal and Retroperitoneal Structures: No lymphadenopathy was noted. Bones and Soft Tissues: Pelvic bones and soft tissues are unremarkable. No fractures or abnormal masses were identified. Tiny fat-containing umbilical hernia. IMPRESSION: 1. Small bowel obstruction, involving the distal jejunum/jejnoileal region, transition zone noted at proximal ileum, the ileum segment just distal to transition show mildly thickened enhanced wall with engorged supplying vessels (vasa recta), suggesting a possible inflammatory cause of obstruction, advise clinical correlation. 2. Mild free fluid in the pelvis. 3. Multiple small variable-sized hepatic cysts. 4. Dilated CBD reaching 1 cm, CHD, and right and left main hepatic ducts, probably due to post-cholecystectomy state, clinical correlation is advised. Electronically signed by Ruddy Castellano 10-17-2024 06:40 AM Chest X-Ray 10/17/24 03:16 EXAM: XR chest 1V portable CLINICAL HISTORY: Chest pain, nonspecific TECHNIQUE: Radiograph of chest was acquired. 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 The cardiomediastinal silhouette is within normal limits. No acute osseous abnormality. IMPRESSION: 1. No acute cardiopulmonary disease. No new finding. Electronically signed by Alberto Acosta 10-17-2024 07:11 AM Medications Administered Sodium Chloride (Nss) 500 mls @ 125 mls/hr IV .Q4H OLEGARIO Stop: 10/17/24 11:14 Last Admin: 10/17/24 07:21 Dose: 125 mls/hr Documented By: SAMARIA Discontinued Medications Hydromorphone HCl (Hydromorphone Inj 0.5 Mg/0.5 Ml Syr) 0.5 mg IV NOW STA Stop: 10/17/24 03:17 Last Admin: 10/17/24 03:36 Dose: 0.5 mg Documented By: JOSEPHINE Pantoprazole Sodium (Protonix) 40 mg in 10 mls @ 5 mls/min IV NOW ONE Stop: 10/17/24 03:17 Last Admin: 10/17/24 03:36 Dose: 5 mls/min Documented By: JOSEPHINE Sodium Chloride (Nss) 1,000 mls @ 999 mls/hr IV .Q1H1M ONE Stop: 10/17/24 05:47 Last Infusion: 10/17/24 06:47 Dose: Infused Documented By: Admin: 10/17/24 05:31 Dose: 999 mls/hr Documented By: JOSEPHINE Ioversol (Optiray 320 100ml) 93 ml IV ONCE ONE Stop: 10/17/24 04:54 Last Admin: 10/17/24 04:53 Dose: 93 ml Documented By: DENILSON Ondansetron HCl (Ondansetron Inj 2 Mg/Ml 2 Ml Vial) 4 mg IV NOW STA Stop: 10/17/24 03:17 Last Admin: 10/17/24 03:36 Dose: 4 mg Documented By: LAF Code Status & VTE Plan Code Status FULL CODE Supervising Physician Co-Signing Physician Notes Patient seen and examined at bedside. Patient doing well today, pain improved since admission. On exam, tenderness to palpation in epigastric region, otherwise well appearing. Weight appears relatively stable. Etiology unclear, does have abdominal surgeries in past making adhesions part of differential. Other considerations would be Crohns disease, less likely malignancy. Will need GI f/u outpatient for further evaluation. In meantime, fluids and NPO, appreciate surgery recommendations for SBO. I have seen and discussed the case with the collaborating advanced practitioner. I agree with the above H&P. I have reviewed and confirmed the patients medical history, the findings on physical examination, and the patients diagnosis and treatment plan with Amarilys SCHMITZ and agree with the information documented. I spent a total of 30 minutes coordinating, documenting, and providing care for this patient excluding time spent in the performance of separately billed services. All of the aforementioned completed outside of collaborating with the assigned advanced practitioner for a full treatment plan. I have reviewed the advanced practitioner's documentation, and I agree with, and take responsibility for the plan of care
[2024-10-17] MEDS: SODIUM CHLORIDE 0.9% 1,000 ML IV SCH (08:11)
--- NOTE | 2024-10-17 09:50 | Surgery Consultation ---
Date of Consultation October 17, 2024 Assessment & Plan (1) Small bowel obstruction: Her CT images and results were personally viewed and interpreted by myself She does have a small bowel obstruction with possible transition point without any signs of ischemic bowel She is feeling much better at this point, no indications for emergent surgery Keep her n.p.o., no need for NG tube at this point Surgery will follow along in hopes that we can treat her nonoperatively History of Present Illness Reason for Consultation: Small bowel obstruction History of Present Illness This is a 54-year-old female who came in with right-sided and epigastric abdominal pain for about a day. She said she had a similar episode many months ago and was told she had pancreatitis and sent home. CT scan did reveal a small bowel obstruction. She states her pain is improved now as compared to when she came in. She states she is not passing any gas currently and had a normal bowel movement yesterday. Previous abdominal surgeries include multiple laparoscopies for oophorectomy and then hysterectomy as well as an open appendectomy. She also had a laparoscopic cholecystectomy. She was throwing up at home, has not since she got here. Allergies Allergy/AdvReac Type Severity Reaction Status Date / Time citalopram Allergy Intermediate hives ? Verified 09/10/24 16:13 erythromycin base Allergy Intermediate chest pain Verified 10/17/24 09:02 Macrolide Antibiotics Allergy Intermediate Hives Verified 10/17/24 09:02 Penicillins Allergy Intermediate Hives Verified 10/17/24 09:02 walnut Allergy Intermediate Hives Verified 10/17/24 09:02 Sulfa (Sulfonamide Allergy Mild nausea and Verified 10/17/24 09:02 Antibiotics) vomiting, hives Home Medications Medication Instructions Recorded Confirmed Type fluoxetine 10 mg tablet 10 mg PO QAM 08/01/22 10/17/24 History ascorbate calcium (vitamin C) 1 tab PO DAILY 10/17/24 10/17/24 History Patient History Medical History History of menorrhagia had hysterectomy--no further issues History of COVID-19 03/2021--mild symptoms, no symptoms now History of basal cell cancer on nose and back Osteoarthritis Uterine fibroid 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 TMJ locking hx TMJ click Surgical History History of colonoscopy History of basal cell carcinoma (BCC) excision on nose and back History of hysterectomy with unilateral oophorectomy 08/2022 History of surgery left index finger History of right oophorectomy History of gynecologic surgery Cervical conization loop electrode excision History of appendectomy History of oral surgery soft palate excision of malignant tumor History of laparoscopic cholecystectomy Family History Mother Breast cancer, Onset Age: 51 Sister Breast cancer, Onset Age: 40 Early 40s Family/Other Endometrial cancer, Onset Age: 40 Family/Other Ovarian cancer Other No family history of adverse response to anesthesia Denies family history of Colorectal cancer Social History Smoking Status: Never smoker Tobacco Type: Cigarettes Second Hand Exposure: No; Do You Dip or Chew Tobacco: No; Hx Alcohol Use: Yes Alcohol type: beer, wine and hard liquor Hx Substance Use: No Preferred Language: Ugandan Communication Ability: Effective B2B Sales Executive Required: No Beliefs That Will Affect Care: None Current Living Situation: Alone Current Living Situation Comment: Feels Safe at Home: Yes Assistive Devices: Glasses Review of Systems Constitutional: no fever and no chills Eyes: no blind spots and no corrective lenses Respiratory: no cough and no dyspnea Cardiovascular: no chest pain and no dyspnea on exertion Gastrointestinal: + abdominal pain, + nausea and + vomitin g Genitourinary: no dysuria and no hematuria Integumentary: no acne and no lesions Neurologic: no gait abnormality and no unsteadiness Psychiatric: no behavioral changes and no depression Hematologic / Lymphatic: no easy bleeding and no easy bruising Physical Exam Constitutional: WD/WN, vitals as above Eyes: PERRL, conjunctivae normal, anicteric sclerae ENMT: external ear and nose normal, oropharynx normal Neck: trachea midline, no thyromegaly Respiratory: normal respiratory effort, lungs clear to auscultation Cardiovascular: RRR, no murmur, no edema Gastrointestinal (Abdomen): normal bowel sounds, soft, nontender, no hepatosplenomegaly Musculoskeletal: no cyanosis or clubbing, extremities motor strength 5/5 Neurologic: PERRL, EOMI, accommodation nl, no face palsy, no dysarthria Psychiatric: A+Ox3, euthymic affect Results & Data Vital Signs (Past 12 Hours) Vital Signs Temp Pulse Resp BP Pulse Ox O2 Del Method 10/17/24 07:06 87 16 138/85 100 Room Air 10/17/24 06:48 66 18 117/84 99 10/17/24 06:20 74 10/17/24 05:46 68 16 119/72 98 10/17/24 05:33 69 13 99 10/17/24 05:21 78 21 100 10/17/24 05:12 63 16 97 10/17/24 05:03 69 15 100 10/17/24 04:59 136/91 10/17/24 04:59 136/91 10/17/24 04:59 136/91 10/17/24 04:45 65 18 136/91 97 10/17/24 03:24 58 L 18 141/89 H 98 10/17/24 03:01 70 10/17/24 02:52 36.6 C 67 16 161/88 H 100 Room Air PG Care Time/CCT Total # of Minutes Spent Total Time Spent with Patient: Total time spent is greater than 50% in coordination of care (as documented) at patient's floor/unit and/or counseling patient: Coding Level of Care Code 10456 IN/OBS CONSULT LVL 5,80M Diagnoses Small bowel obstruction K56.609
[2024-10-17] MEDS ORDERED: ACETAMINOPHEN 325 MG TAB PO PRN (10:38)
[2024-10-17] MEDS ORDERED: ONDANSETRON INJ 2 MG/ML 2 ML VIAL IV PRN (10:38)
[2024-10-17] MEDS ORDERED: MAGNESIUM HYDROXIDE SUSP 30 ML UDC PO PRN (10:38)
[2024-10-17 17:32] LABS: Appearance Urine Clear (Clear); Bacteria Urine Automated 1+ (None Seen); Bilirubin Urine Negative (Negative); Blood Urine Negative (Negative); Cast Urine Automated 0-2 /lpf (0-2); Color Urine Yellow; Glucose Urine UA Negative (Negative); Ketones Urine 1+ (Negative); Leukocyte Esterase Urine 2+ (Negative); Nitrite Urine Negative (Negative); Protein Urine Trace (Negative); Specific Gravity Urine > 1.045 (1.000-1.030); Urobilinogen Urine Negative (Negative); WBC Urine Automated 21-50 /hpf (0-5); pH Urine 7.5 (4.5-7.5)
[2024-10-18 07:02] LABS: Albumin Globulin Ratio 1.5 (0.9-2); Albumin Level 3.2 gm/dl (3.4-5.0); BUN Creatinine Ratio 15.1 (10-20); Bilirubin,Total 0.5 mg/dl (0.2-1.0); Calcium 8.1 mg/dl (8.6-10.3); Creatinine Clr Calc Pharmacy 76.4 ml/min; Globulin 2.2 gm/dl (2.5-4.0); Magnesium 1.8 mg/dl (1.7-2.4); Potassium 4.5 mmol/L (3.5-5.1); Total Protein 5.4 gm/dl (6.0-8.3)
[2024-10-18 08:48] LABS: Hematocrit (blood only) 38.1 % (37.0-47.0); Hemoglobin 12.4 g/dl (12.0-16.0); Mean Corpuscular Hgb Conc 32.5 g/dL (32.0-36.0); Mean Corpuscular Volume 98.4 fL (80.0-100.0); Mean Platelet Volume 10.1 fL (9.4-12.4); Platelet Count 235 K/uL (130-400); RDW Coefficient of Variation 12.5 % (11.5-14.5); RDW Standard Deviation 45.1 fL (36.4-46.3); Red Blood Count 3.87 M/uL (4.20-5.40); White Blood Count 7.62 K/ul (4.8-10.8)
[2024-10-18] MEDS: FLUoxetine HCL 10 MG CAP PO SCH (08:51)
[2024-10-18] MEDS: ACETAMINOPHEN 1,000 MG/100 ML VIAL IV PRN (08:53)
--- NOTE | 2024-10-18 09:18 | Surgery Progress Note ---
Date of Service October 18, 2024 Assessment & Plan (1) Small bowel obstruction: Plan: She she has passed a minimal amount of flatus, but no meaningful return of bowel function She can have some sips of clear liquids today and see how she does Await more meaningful return of bowel function No plans for any surgical intervention at this time If she is not greatly improved by tomorrow, would likely proceed with a p.o. contrast study at that time in hopes that would be therapeutic Admission and Anticipated Discharge Date Admission Date: October 17, 2024 Subjective Patient seen and examined. States she has passed flatus 3 different times. Nothing consistent. No BM. Still with some mild abdominal pain. Denies any nausea or vomiting. Afebrile. Review of Systems Constitutional: no fever and no chills Eyes: no blind spots and no corrective lenses Respiratory: no cough and no dyspnea Cardiovascular: no chest pain and no dyspnea on exertion Gastrointestinal: + abdominal pain; no nausea and no vomit ing Genitourinary: no dysuria and no hematuria Integumentary: no acne and no lesions Neurologic: no gait abnormality and no unsteadiness Psychiatric: no behavioral changes and no depression Hematologic / Lymphatic: no easy bleeding and no easy bruising Physical Exam Constitutional: WD/WN, vitals as above Eyes: PERRL, conjunctivae normal, anicteric sclerae ENMT: external ear and nose normal, oropharynx normal Neck: trachea midline, no thyromegaly Respiratory: normal respiratory effort, lungs clear to auscultation Cardiovascular: RRR, no murmur, no edema Gastrointestinal (Abdomen): normal bowel sounds, soft, nontender, no hepatosplenomegaly Musculoskeletal: no cyanosis or clubbing, extremities motor strength 5/5 Neurologic: PERRL, EOMI, accommodation nl, no face palsy, no dysarthria Psychiatric: A+Ox3, euthymic affect Results & Data Vital Signs (Past 12 Hours) Vital Signs Temp Pulse Resp BP Pulse Ox O2 Del Method 10/18/24 07:32 36.7 C 67 18 124/70 97 Room Air 10/17/24 23:49 36.5 C 83 18 113/71 96 Room Air PG Care Time/CCT Total # of Minutes Spent Total Time Spent with Patient: Total time spent is greater than 50% in coordination of care (as documented) at patient's floor/unit and/or counseling patient: Coding Level of Care Code 23071 SUB INP/OBS CARE MIN Diagnoses Small bowel obstruction K56.609
--- NOTE | 2024-10-18 10:48 | Hospitalist Progress Note ---
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 #SBO CTAP:Small bowel obstruction, involving the distal jejunum/jejnoileal region, transition zone noted at proximal ileum, the ileum segment just distal to transition show mildly thickened enhanced wall with engorged supplying vessels (vasa recta), suggesting a possible inflammatory cause of obstruction. Lipase negative Lactate negative Gen surg on board Passing flatus but no BM yet Trial clear liquids Continue maintenance IVF for now No indication for NGT placement at this time If no improvement or BM by 2morrow, will likely need po contrast study PRN IV Tylenol for pain #Leukocytosis --> now resolved #Abnormal UA Procal negative CXR unremarkable UA abnormal but pt w/ no urinary complaints -Likely contaminated sample -No indication for ABX at this time -Urine cx pending however low threshold to tx if pt asymptomatic Leukocytosis resolved --> likely was 2/2 pain + inflammatory response #Anxiety Continue Prozac #Incidental CTAP finding --> multiple small variable-sized hepatic cysts Pt made aware Alk phos slightly bumped on admission but now WNL Outpt f/u advised DVT Prophylaxis: SCDs/TEDs Disposition: Monitor for BM, possible po contrast study 2morrow if no improvement Patient seen in collaboration with Dr. Wells. Please see addendum. I spent a total of 35 minutes coordinating, documenting, and providing care for this patient excluding time spent in the performance of separately billed services or time spent by another provider/QHP. This included personally re viewing all current laboratories and imaging studies, medical reconciliation, outpatient chart review and discussion with specialists. This chart was completed in part utilizing Speech Voice Recognition Software. Grammatical errors, random word insertions, pronoun errors, and incomplete sentences are an occasional consequence of this system due to software limitations, ambient noise, and hardware issues. Any formal questions or concerns about the content, text, or information contained within the body of this dictation should be directly addressed to the provider for clarification. Admission and Anticipated Discharge Date Admission Date: October 17, 2024 Supervising Physician Co-Signing Physician Notes Patient seen at bedside. Patient doing well today, pain improved since admission. Etiology unclear, does have abdominal surgeries in past making adhesions part of differential. Other considerations would be Crohns disease, less likely malignancy. Will need GI f/u outpatient for further evaluation. In meantime, fluids and NPO, appreciate surgery recommendations for SBO. I have seen and discussed the case with the collaborating advanced practitioner. I agree with the above H&P. I have reviewed and confirmed the patients medical history, the findings on physical examination, and the patients diagnosis and treatment plan with Amarilys SCHMITZ and agree with the information documented. I spent a total of 10 minutes coordinating, documenting, and providing care for this patient excluding time spent in the performance of separately billed services. All of the aforementioned completed outside of collaborating with the assigned advanced practitioner for a full treatment plan. I have reviewed the advanced practitioner's documentation, and I agree with, and take responsibility for the plan of care Subjective Patient seen and examined in room N284-1. Passing gas few times but no BM yet. Still with some mild pain in her epigastrium and R mid to lower abdominal quadrant. Denies any N/V. Review of Systems Review of Systems: At least ten systems reviewed and negative, except as noted in the subjective section. Physical Exam Physical Exam: General: WD/WN, NAD. A&Ox4, conversing appropriately. Pleasant. Laying down in bed. HEENT: Normocephalic, atraumatic. External ear and nose normal, oropharynx moist. Respiratory: Normal respiratory effort, lungs clear to auscultation bilaterally. Cardiovascular: Regular rate, rhythm, normal peripheral pulses, no BLE edema. Abdomen/GI: Slightly hypoactive bowel sounds, soft, mild discomfort w/ palpation of epigastrium and R mid to lower abd quadrants. Nondistended. Extremities/MSK: No cyanosis or clubbing, extremities motor strength intact, moves all extremities. Neurologic: No overt focal deficits, CN's II-XI not formally tested but appear grossly intact bilaterally. Skin: No rashes, normal color. Healed laparoscopic incisions on abd wall from prior surgeries. Results & Data Results & Data Vital Signs (Past 12 Hours) Vital Signs Temp Pulse Resp BP Pulse Ox O2 Del Method 10/18/24 07:32 36.7 C 67 18 124/70 97 Room Air 10/17/24 23:49 36.5 C 83 18 113/71 96 Room Air Laboratory Results Short CBC 10/18/24 10/18/24 Range/Units 05:23 08:15 WBC Cancelled 7.62 Hgb Cancelled 12.4 D Hct Cancelled 38.1 Plt Count Cancelled 235 BMP 10/18/24 05:23 Sodium 143 Potassium 4.5 Chloride 112 H Carbon Dioxide 28 BUN 13 Creatinine 0.86 Glucose 69 L Calcium 8.1 L Liver Function 10/18/24 Range/Units 05:23 Total Bilirubin 0.5 (0.2-1.0) mg/dl AST 14 (13-39) U/L ALT 9 (7-52) U/L Alkaline Phosphatase 74 (34-104) U/L Albumin 3.2 L (3.4-5.0) gm/dl Urine 10/17/24 Range/Units 17:17 Urine Color Yellow Urine Appearance Clear (Clear) Urine pH 7.5 (4.5-7.5) Ur Specific Bryant > 1.045 H (1.000-1.030) Urine Protein Trace H (Negative) Urine Glucose (UA) Negative (Negative) (2) Leukocytosis Leukocytosis type: unspecified Qualified Code(s): D72.829 - Elevated white blood cell count, unspecified
[2024-10-18] MEDS: KETOROLAC TROMETHAMINE 15 MG/ML VIAL IV ONE (12:08)
[2024-10-18] MEDS ORDERED: KETOROLAC TROMETHAMINE 15 MG/ML VIAL IV PRN (17:00)
[2024-10-18] MEDS: POLYETHYLENE (MIRALAX) 17 GM PACK PO PRN (19:40)
[2024-10-19 08:02] LABS: Basophils # (auto) 0.05 K/uL (0.00-0.20); Basophils % (auto) 0.9 %; Eosinophils % (auto) 3.7 %; Hematocrit (blood only) 40.2 % (37.0-47.0); Immature Granulocytes # (auto) 0.01 K/uL (0.01-0.20); Immature Granulocytes % (auto) 0.2 %; Lymphocytes # (auto) 1.81 K/uL (1.20-3.40); Lymphocytes % (auto) 33.7 %; Mean Corpuscular Hemoglobin 31.3 pg (25.0-34.0); Mean Corpuscular Hgb Conc 32.3 g/dL (32.0-36.0); Mean Corpuscular Volume 96.9 fL (80.0-100.0); Mean Platelet Volume 10.4 fL (9.4-12.4); Monocytes # (auto) 0.49 K/uL (0.11-0.59); Monocytes % (auto) 9.1 %; Neutrophils # (auto) 2.81 K/uL (1.40-6.50); Neutrophils % (auto) 52.4 %; Platelet Count 256 K/uL (130-400); RDW Coefficient of Variation 12.3 % (11.5-14.5); RDW Standard Deviation 44.3 fL (36.4-46.3); Red Blood Count 4.15 M/uL (4.20-5.40); White Blood Count 5.37 K/ul (4.8-10.8)
[2024-10-19 08:18] LABS: Calcium 8.5 mg/dl (8.6-10.3); Creatinine Clr Calc Pharmacy 93.8 ml/min; Magnesium 1.7 mg/dl (1.7-2.4); Potassium 3.8 mmol/L (3.5-5.1)
--- NOTE | 2024-10-19 10:26 | Surgery Progress Note ---
Date of Service October 19, 2024 Assessment & Plan (1) Small bowel obstruction: Plan: Pt w/ history of cholecystectomy, appendectomy, hysterectomy with R oophorectomy here w/ SBO Vitals stable She is feeling well, but has some ongoing low midline abd pain passing small amounts of gas, no BM yet. she is ambulating frequently Will obtain KUB for further information, medicine has ordered clears in interim will follow as above. still some cramping lower abdomen. +flatus.. feels hungry. if KUB improved today will advance diet to fulls...if no improvement will prob order sbft tomorrow Admission and Anticipated Discharge Date Admission Date: October 17, 2024 Subjective Patient feeling fairly well. Does report some discomfort in abdomen that remains. No nausea/vomiting. Passing very small amounts of gas. No BM. Ambulating the halls frequently. Physical Exam Physical Exam: awake/alert, no distress Gastrointestinal (Abdomen): Inspection/Auscultation: abdomen not distended Percussion/Palpation: + abdomen tender (low midline discomfort to palpation ) and abdomen soft Results & Data Vital Signs (Past 12 Hours) Vital Signs Temp Pulse Resp BP Pulse Ox O2 Del Method 10/19/24 07:03 98.2 F 56 L 18 124/77 98 Room Air PG Care Time/CCT Total # of Minutes Spent Total Time Spent with Patient: Total time spent is greater than 50% in coordination of care (as documented) at patient's floor/unit and/or counseling patient: Coding Level of Care Code 99054 SUB INP/OBS CARE 05/23MIN Diagnoses Small bowel obstruction K56.609
--- NOTE | 2024-10-19 11:29 | XRay Report ---
KUB HISTORY: eval bowel/gas pattern/sbo COMPARISON STUDY: 10/17/2024 FINDINGS: There is residual mild small bowel distention measuring up to 3.1 cm at the left midabdomen , grossly stable. There is no colonic distention. There is mild retained stool. No gross free air. IMPRESSION: Stable small bowel distention. ACT 112: Negative or not required by law. The above report was generated using voice recognition software. It may contain grammatical, syntax o r spelling errors. Electronically signed by: Mc Reyes M.D. 10/19/2024 11:27 AM
--- NOTE | 2024-10-19 11:53 | Hospitalist Progress Note ---
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 #SBO CTAP:Small bowel obstruction, involving the distal jejunum/jejnoileal region, transition zone noted at proximal ileum, the ileum segment just distal to transition show mildly thickened enhanced wall with engorged supplying vessels (vasa recta), suggesting a possible inflammatory cause of obstruction. Conservative mgmt, no indication for NG tube Passing flatus but no BM yet - continue clear liquids for now Discussed with gen surg- repeat KUB today without change. Recommend continuing clears for now, SBFT study tomorrow Continue maintenance IVF for now Encouraging continued ambulation PRN IV Tylenol for pain #Leukocytosis --> resolved likely was 2/2 pain, inflammatory response #Anxiety Continue Prozac #Incidental CTAP finding --> multiple small variable-sized hepatic cysts Pt made aware Alk phos slightly bumped on admission but now WNL Outpt f/u advised DVT Prophylaxis: SQ lovenox Disposition: Admitted on med/surg, SBFT study tomorrow Patient seen in collaboration with Dr. Wells. I spent a total of 50 minutes coordinating, documenting, and providing care for this patient excluding time spent in the performance of separately billed services or time spent by another provider/QHP. This included personally reviewing all current laboratories and imaging studies, medical reconciliation, outpatient chart review and discussion with specialists. Admission and Anticipated Discharge Date Admission Date: October 17, 2024 Supervising Physician Co-Signing Physician Notes Patient seen at bedside. Patient continues to have some mild tenderness to palpation in suprapubic and periumbilca regions. Patient with stable but not improving SBO. Appreciate surgical recommendations. KUB ordered appears stable. May need CT abdomen/pelvis with PO contrast vs. further interventions pending surgical recommendations. Will increase rate of fluid resuscitation. I have seen and discussed the case with the collaborating advanced practitioner. I agree with the above H&P. I have reviewed and confirmed the patients medical history, the findings on physical examination, and the patients diagnosis and treatment plan with Amarilys SCHMITZ and agree with the information documented. I spent a total of 20 minutes coordinating, documenting, and providing care for this patient excluding time spent in the performance of separately billed services. All of the aforementioned completed outside of collaborating with the assigned advanced practitioner for a full treatment plan. I have reviewed the advanced practitioner's documentation, and I agree with, and take responsibility for the plan of care Subjective Seen and examined in 361-1. Feeling ok today and able to ambulate in the halls and got a shower. Passing flatus but not frequently and no bowel movement yet. Tolerating clears without issue. Still with some lower abd distention and feeli ng urge to have a bowel movement. No F/C, lightheadedness, CP, SOB, N/V, dysuria. Review of Systems Review of Systems: At least ten systems reviewed and negative except as noted in the HPI. Physical Exam Physical Exam: Gen: WD/WN, NAD, sitting upright in bed, A&Ox3 HEENT: Normocephalic, atraumatic, mucous membranes moist Lung: Clear to Auscultation bilaterally Heart: Regular rate, regular rhythm Abdomen: Soft, no distension, TTP at LLQ, no guarding, +BS x 4 Extremities: no edema Skin: Warm, no rash Results & Data Results & Data Vital Signs (Past 12 Hours) Vital Signs Temp Pulse Resp BP Pulse Ox O2 Del Method 10/19/24 07:03 36.8 C 56 L 18 124/77 98 Room Air Laboratory Results Short CBC 10/19/24 Range/Units 07:27 WBC 5.37 (4.8-10.8) K/ul Hgb 13.0 (12.0-16.0) g/dl Hct 40.2 (37.0-47.0) % Plt Count 256 (130-400) K/uL BMP 10/19/24 07:27 Sodium 139 Potassium 3.8 Chloride 107 Carbon Dioxide 27 BUN 7 Creatinine 0.70 Glucose 79 Calcium 8.5 L Diagnostic Findings Abdomen/Pelvis CT 10/17/24 03:16 EXAM: CT abd pelvis IV con only CLINICAL HISTORY: Eval epigastric pain. TECHNIQUE: CT of the abdomen and pelvis was performed with contrast 93 ml opti 320 mg/ml was administrated, with the following protocol: axial images with, and reconstructed coronal and sagittal images. One of the following dose reduction techniques was utilized for this exam: Automated exposure control, adjustment of the mA and/or kV according to patient size, and use of iterative reconstruction. COMPARISON: None. FINDINGS: Abdomen: Dilated long segment of small bowel at distal jejunum/jejunoileal junction, measuring 3.2 cm transition zone noted at proximal ileum, distal to it collapsed ileum and large bowel noted, the ileum segment just distal to transition show mildly thickened enhanced wall with engorged supplying vessels(vasa recta), suggesting possible inflammatory cause of obstruction. Mild free fluid in the pelvis. Liver: Multiple small variable liver cysts, the largest one is 1.3cm, at segment VIII. Otherwise, Normal in size, shape, and density. No masses were identified. Hepatic vasculature and biliary ducts are unremarkable. Gallbladder and Biliary System: GB is surgically absent Dilated CBD reaching 1 cm, CHD and right and left main hepatic ducts, probably due to post-cholecystectomy state, clinical correlation is advised. Pancreas: The pancreatic head, body, and tail are visualized and appear normal in size and density. No pancreatic masses or calcifications were noted. The pancreatic duct is not dilated. Spleen: Normal in size, shape, and density. No splenic lesions or masses were identified. Appendix: Not seen in isolation, but no gross pathology. Kidneys and Adrenal Glands: Both kidneys are normal in size, shape, and position. Cortical thickness is within normal limits. No renal calculi or hydronephrosis. Adrenal glands are unremarkable with no evidence of masses or hyperplasia. Pelvis: Urinary Bladder: Normal in contour and wall thickness. No intraluminal lesions identified. Uterus: Not seen, likely removed surgically. Ovaries: Not well visualized but no gross abnormalities noted. Peritoneal and Retroperitoneal Structures: No lymphadenopathy was noted. Bones and Soft Tissues: Pelvic bones and soft tissues are unremarkable. No fractures or abnormal masses were identified. Tiny fat-containing umbilical hernia. IMPRESSION: 1. Small bowel obstruction, involving the distal jejunum/jejnoileal region, transition zone noted at proximal ileum, the ileum segment just distal to transition show mildly thickened enhanced wall with engorged supplying vessels (vasa recta), suggesting a possible inflammatory cause of obstruction, advise clinical correlation. 2. Mild free fluid in the pelvis. 3. Multiple small variable-sized hepatic cysts. 4. Dilated CBD reaching 1 cm, CHD, and right and left main hepatic ducts, probably due to post-cholecystectomy state, clinical correlation is advised. Electronically signed by Ruddy Castellano 10-17-2024 06:40 AM Chest X-Ray 10/17/24 03:16 EXAM: XR chest 1V portable CLINICAL HISTORY: Chest pain, nonspecific TECHNIQUE: Radiograph of chest was acquired. COMPARISON: 08/27/2023 07:58:08 LAW WRITER FINDINGS: The lungs are clear and well-expanded with no pulmonary infiltrate or pleural effusion. The cardiomediastinal silhouette is within normal limits. No acute osseous abnormality. IMPRESSION: 1. No acute cardiopulmonary disease. No new finding. Electronically signed by Alberto Acosta 10-17-2024 07:11 AM KUB X-Ray 10/19/24 10:18 KUB HISTORY: eval bowel/gas pattern/sbo COMPARISON STUDY: 10/17/2024 FINDINGS: There is residual mild small bowel distention measuring up to 3.1 cm at the left midabdomen, grossly stable. There is no colonic distention. There is mild retained stool. No gross free air. IMPRESSION: Stable small bowel distention. ACT 112: Negative or not required by law. The above report was generated using voice recognition software. It may contain grammatical, syntax or spelling errors. Electronically signed by: Mc Reyes M.D. 10/19/2024 11:27 AM (2) Leukocytosis Leukocytosis type: unspecified Qualified Code(s): D72.829 - Elevated white b lood cell count, unspecified
[2024-10-19] MEDS: MAGNESIUM SULFATE / D5W 1 GM/100 ML BAG IV ONE (12:59)
[2024-10-19] MEDS: ENOXAPARIN INJ 40 MG/0.4 ML SYR SQ SCH (13:00)
[2024-10-19 19:46] VITALS: TEMP 98.1
[2024-10-20 06:42] LABS: Hematocrit (blood only) 34.8 % (37.0-47.0); Hemoglobin 11.8 g/dl (12.0-16.0); Mean Corpuscular Hemoglobin 32.4 pg (25.0-34.0); Mean Corpuscular Hgb Conc 33.9 g/dL (32.0-36.0); Mean Corpuscular Volume 95.6 fL (80.0-100.0); Mean Platelet Volume 10.1 fL (9.4-12.4); Platelet Count 230 K/uL (130-400); RDW Coefficient of Variation 11.9 % (11.5-14.5); RDW Standard Deviation 41.8 fL (36.4-46.3); Red Blood Count 3.64 M/uL (4.20-5.40); White Blood Count 5.06 K/ul (4.8-10.8)
[2024-10-20 07:08] VITALS: BP 132/83; PULSE 52; RESP 18; O2SAT 98
--- NOTE | 2024-10-20 07:16 | Surgery Progress Note ---
Date of Service October 20, 2024 Assessment & Plan (1) Small bowel obstruction: Plan: Pt w/ history of cholecystectomy, appendectomy, hysterectomy with R oophorectomy here w/ SBO VSS Had multiple BM's yesterday and advanced to fulls without issues This AM she continues to feel well, no n/v, pain minimal Will trial low fiber diet, if that goes well can consider dispo later today Admission and Anticipated Discharge Date Admission Date: October 17, 2024 Subjective Patient feeling well. Minimal pain. Tolerated fulls without worsening symptoms or nausea/vomiting. She reports passing multiple stools with some gas. Physical Exam Physical Exam: awake/alert, no distress Gastrointestinal (Abdomen): Inspection/Auscultation: abdomen not distended Percussion/Palpation: abdomen soft; abdomen nontender Results & Data Vital Signs (Past 12 Hours) Vital Signs Temp Pulse Resp BP Pulse Ox O2 Del Method 10/20/24 07:07 98.1 F 52 L 18 132/83 98 Room Air 10/19/24 19:45 98.1 F 63 16 134/85 96 Room Air PG Care Time/CCT Total # of Minutes Spent Total Time Spent with Patient: Total time spent is greater than 50% in coordination of care (as documented) at patient's floor/unit and/or counseling patient: Coding Level of Care Code 98087 SUB INP/OBS CARE 05/23MIN Diagnoses Small bowel obstruction K56.609
[2024-10-20 07:18] LABS: Albumin Level 3.3 gm/dl (3.4-5.0); Bilirubin,Total 0.4 mg/dl (0.2-1.0); Calcium 8.2 mg/dl (8.6-10.3); Magnesium 1.9 mg/dl (1.7-2.4); Potassium 3.9 mmol/L (3.5-5.1)
[2024-10-20 07:24] LABS: Albumin Globulin Ratio 1.4 (0.9-2); BUN Creatinine Ratio 5.3 (10-20); Creatinine Clr Calc Pharmacy 87.6 ml/min; Globulin 2.4 gm/dl (2.5-4.0); Phosphorus 3.2 mg/dl (2.5-4.9); Total Protein 5.7 gm/dl (6.0-8.3)
--- NOTE | 2024-10-20 09:17 | Discharge Summary ---
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 Admitting CT abdomen pelvis with small bowel obstruction, involving the distal jejunum/jejnoileal region, transition zone noted at proximal ileum, the ileum segment just distal to transition show mildly thickened enhanced wall with engorged supplying vessels (vasa recta), suggesting a possible inflammatory cause of obstruction. Conservative management recommended by General Surgery and patient's symptoms improved over several days. Had multiple bowel movements last evening, tolerating low fiber diet without issue today. Patient already going through outpatient work up for chronic abdominal pain and follows with [facility]. Incidental finding of multiple small variable-sized hepatic cysts on admission CT abd/pelvis. Patient made aware. Recommend PCP follow up. Patient comfortable and hemodynamically stable at time of discharge home. 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 History obtained from the patient, discussion with ED provider and associated chart review. Endorses intermittent bouts of epigastric discomfort and pain which have been ongoing since last year. Had been on trial of oral omeprazole as directed by her PCP which did initially seem to help up until the past few months when these episodes started happening again. She was subsequently referred by her PCP for outpatient EGD which was recently completed this past Saturday and it came back "completely normal" per the patient. Last evening she started to have intense epigastric pain after eating dinner and then developed incessant N/V which prompted her to come to the ED. No reported fevers. No history of inflammatory bowel disease. History of hysterectomy, right salpingo-oophorectomy, cholecystectomy and appendectomy. Prior colonscopy in February 2023: 4mm sessile polyp in the sigmoid colon (removed via cold snare), small non-bleeding internal hemorrhoids. Former smoker, quit >20 years ago. Occasional alcohol use. No recreational drug use. Admission Exam Per Admitting Provider General: WD/WN, NAD. A&Ox4, conversing appropriately. Pleasant. HEENT: Normocephalic, atraumatic. External ear and nose normal, oropharynx slightly dry. Respiratory: Normal respiratory effort, lungs clear to auscultation bilaterally. Cardiovascular: Regular rate, rhythm, normal peripheral pulses, no BLE edema. Abdomen/GI: Active bowel sounds, soft, mild discomfort w/ palpation of epigastrium but otherwise benign. Nondistended. Extremities/MSK: No cyanosis or clubbing, extremities motor strength intact, moves all extremities. Neurologic: No overt focal deficits, CN's II-XI not formally tested but appear grossly intact bilaterally. Skin: No rashes, normal color. Healed laparoscopic incisions on abd wall from prior surgeries. Discharge Exam Gen: WD/WN, NAD, sitting upright in bed, A&Ox3 HEENT: Normocephalic, atraumatic, mucous membranes moist Lung: Clear to Auscultation bilaterally Heart: Regular rate, regular rhythm Abdomen: Soft, no distension, TTP at LLQ, no guarding, +BS x 4 Extremities: no edema Skin: Warm, no rash Updated Medication List Medication Instructions Recorded Confirmed Type fluoxetine 10 mg tablet 10 mg PO QAM 08/01/22 10/17/24 History ascorbate calcium (vitamin C) 1 tab PO DAILY 10/17/24 10/17/24 History Hospital Stay Data Consultations 10/17/24 07:25 ED Decision to Admit Stat 10/17/24 07:35 Consult General Surgery Routine Diagnostic Imagining Performed 10/17/24 03:16 CT abd pelvis IV con only Stat Pending Results Patient Have Any Pending Studies at Discharge: No Discharge Instructions Given to Patient (Per Discharging Provider) You were admitted with a small bowel obstruction that has resolved. Please continue with low fiber diet and follow up with PCP next week as scheduled. Follow up with GI for enteroscopy evaluation for chronic abdominal discomfort. RECOMMENDATIONS FOR FOLLOW-UP: Follow up with PCP as scheduled. Please follow up with GI for enteroscopy evaluation as scheduled. Incidental finding on CT abd/pelvis of multiple small variable-sized hepatic cysts - outpatient follow up / monitoring per PCP Continue medication regimen as scheduled aside from changes noted above. OTHER INSTRUCTIONS: Seek medical attention if you have: * temperature above 101 * chest pain or trouble breathing * abdominal pain, nausea, vomiting * diarrhea, dark stools or bloody stools * any unanswered questions or concerns Call 911 if symptoms are severe. Please take good care of yourself. Call if you have any questions or problems. You can reach a [facility] hospitalist on duty at [facility] 24 hours a day by calling [phone]. Total Time Total Time Spent Total Time Spent (In Minutes): 50 Supervising Physician Co-Signing Physician Notes Patient seen and examined at bedside. Patient sitting in chair, eating, much improved. Had severeal bowel movements overnight. Patient improved, having BM and tolerating diet. Should follow up with GI for scopes to rule out etiologies such as Crohns disease. Medically stable for discharge home. I have seen and discussed the case with the collaborating advanced practitioner. I agree with the above H&P. I have reviewed and confirmed the patients medical history, the findings on physical examination, and the patients diagnosis and treatment plan with Amarilys SCHMITZ and agree with the information documented. I spent a total of 15 minutes coordinating, documenting, and providing care for this patient excluding time spent in the performance of separately billed services. All of the aforementioned completed outside of collaborating with the assigned advanced practitioner for a full treatment plan. I have reviewed the advanced practitioner's documentation, and I agree with, and take responsibility for the plan of care
--- NOTE | 2024-10-20 13:37 | Electrocardiogram Report ---
Test Reason : Blood Pressure : */* mmHG Vent. Rate : 67 BPM Atrial Rate : 67 BPM P-R Int : 138 ms QRS Dur : 74 ms QT Int : 406 ms P-R-T Axes : 65 72 59 degrees QTcB Int : 429 ms Normal sinus rhythm Normal ECG When compared with ECG of 09-Aug-2023 19:19, No significant change was found Confirmed by Moy Lucio ([id number]) on 10/20/2024 1:36:43 PM Referred By: REFERRED SELF Confirmed By: Moy Lucio
== END 2024-10-20 12:57 | disposition home or self-care (01) | DRG 390 ==
LOC: ED 02:44 → 2N 07:44 → 3W 10-18 12:14